=== PATIENT | female | born 1980 | race Caucasian/White ===

== ENCOUNTER 2018-04-23 13:06 | Emergency (ER) | payer SELFPAY ==
[2018-04-23] MEDS ORDERED: IBUPROFEN 600 MG TAB PO ONE (14:14)
--- NOTE | 2018-04-23 14:34 | EDPHY ---
H & P Time Seen by Provider: 04/23/18 13:33 HPI/ROS: This patient presents with right breast pain that is reminiscent of pain with mastitis but she has noticed no redness to the skin and reports that she had a negative workup including physical exam, ultrasound and mammogram last week. She reports 5/10 pain that is achy in nature. She also describes mild diffuse myalgias and fatigue. Finally, she reports nasal congestion. She is concerned that she may have influenza as her recently had URI symptoms with myalgias that seemed like"the flu"to the patient. ROS: Constitutional: No high fevers or chills HEENT: No sinus pain. No ear pain she has moderate sore throat 5/10 intensity Pulmonary: Minimal cough over the past few days that is dry no shortness of breath or pleuritic pain. No hemoptysis Cardiovascular: No complaints GI: No nausea vomiting or abdominal pain or diarrhea Integumentary: No skin rash. 10 point review of symptoms is performed and otherwise negative with exception of pertinent positives and negatives listed in HPI and ROS Past Medical/Surgical History: Right breast pain worked up last week with negative mammogram and ultrasound Smoking Status: Current every day smoker Physical Exam: Physical Exam Vital signs are normal. General: No acute distress HEENT: Nose: Clear discharge bilaterally. No sinus tenderness to percussion. Ears: External canals and tympanic membranes are clear with no erythema or abnormal findings bilaterally. Oropharynx: No erythema or exudates. No dysphonia. No drooling or stridor. Eyes: Pupils equal and react to light. Extraocular motions are intact. Neck: Supple with no meningismus. No lymphadenopathy Lungs: Clear to auscultation bilaterally with no rales, rhonchi or wheeze. No respiratory distress. Breast exam: Large pendulous breasts with fibrous breast tissue and mild tenderness the right. Appreciate no masses. There is no skin changes and no nipple discharge. Lymph: Appreciate no adenopathy axillary or elsewhere Cardiac: Regular rate and rhythm with no murmur gallop or rub Skin: No rash or pallor. Neuro: Alert with no focal deficits noted. Initial differential diagnosis: Viral URI, myalgias, fibrous breast tissue, fibromyalgia Constitutional: Initial Vital Signs Temperature (C) 37 C 04/23/18 13:18 Heart Rate 81 04/23/18 13:18 Respiratory Rate 14 04/23/18 13:18 Blood Pressure 125/91 H 04/23/18 13:18 O2 Sat (%) 94 04/23/18 13:18 O2 Delivery Mode Room Air Allergies/Adverse Reactions: erythromycin base [Erythromycin Base] Allergy (Intermediate, Verified 04/23/18 13:38) amoxicillin Allergy (Mild, Verified 04/23/18 13:38) Rash Home Medications: Medication Instructions Recorded ARMOUR THYROID 04/06/10 Efa 04/06/10 TABLET 04/06/10 Zoloft 04/06/10 Wellbutrin Sr 04/23/18 MDM/Departure - MDM Diagnostics: Rapid strep is negative Rapid flu is pending Medications Given: Discontinued Medications Ibuprofen (Motrin) 600 mg PO EDNOW ONE Stop: 04/23/18 14:15 Last Admin: 04/23/18 14:45 Dose: 600 mg - Depart Disposition: Home, Routine, Self-Care Clinical Impression: Breast pain, Viral upper respiratory infection Condition: Good Instructions: Upper Respiratory Infection (ED) Additional Instructions: Diagnosis: 1. Breast pain 2. Viral upper respiratory infection Plan: Ibuprofen Tylenol for pain Plenty fluids and rest Return for any significant worsening despite treatment plan Referrals: NONE *PRIMARY CARE P,. [Primary Care Provider] - As per Instructions Odalys Tucker MD [Medical Doctor] - As per Instructions
[2018-04-23 15:12] VITALS: BP 131/102
== END 2018-04-23 15:10 | disposition home or self-care (01) ==
LOC: CED 13:06
DX: N64.4 Mastodynia (principal); J06.9 Acute upper respiratory infection, unspecified; F17.200 Nicotine dependence, unspecified, uncomplicated; Z88.0 Allergy status to penicillin